=== PATIENT | female | born 1970 | race Caucasian/White ===

== ENCOUNTER 2018-01-26 10:16 | Outpatient (CLI) | payer OTHER | END 2018-01-26 10:30 | disposition home or self-care (01) | LOC: SONOGRAMA 10:16 | DX: E04.1 Nontoxic single thyroid nodule (principal) ==

== ENCOUNTER 2019-04-28 13:31 | Outpatient (CLI) | payer OTHER | END 2019-04-28 13:57 | disposition home or self-care (01) | LOC: NUCLEAR 13:31 | DX: M81.0 Age-related osteoporosis without current pathological fracture (principal); N63.10 Unspecified lump in the right breast, unspecified quadrant; N63.20 Unspecified lump in the left breast, unspecified quadrant; N64.4 Mastodynia; N83.01 Follicular cyst of right ovary; N83.02 Follicular cyst of left ovary; N80.8 Other endometriosis; D25.9 Leiomyoma of uterus, unspecified ==

== ENCOUNTER 2019-04-28 14:51 | Outpatient (CLI) | payer OTHER | END 2019-04-28 15:14 | disposition home or self-care (01) | LOC: MAMO-SONO 14:51 | DX: M81.0 Age-related osteoporosis without current pathological fracture (principal); N63.10 Unspecified lump in the right breast, unspecified quadrant; N63.20 Unspecified lump in the left breast, unspecified quadrant; N64.4 Mastodynia; N80.8 Other endometriosis; D25.9 Leiomyoma of uterus, unspecified; N83.00 Follicular cyst of ovary, unspecified side ==